=== PATIENT | male | born 1935 | race African-American/Black ===

== ENCOUNTER → 2017-01-22 | Outpatient (CLI) | payer MEDICARE, OTHER ==
[~2017-01-22] MED LIST: ACET-784 PO; ALLO100T PO; AMLO-512 PO; ASPI-825 PO; ATOR40TA28 PO; BISA10S PR; BUME1TAB30 PO; CALC-272 PO; CARV3 PO; CARV6 PO; CEFP200T12 PO; CHOL200016 PO; DOCU240C40 PO; DSS100 PO; FERR-89 PO; FLUT16H NASAL; GABA-531 PO; HYDR-3965 PO; INSLAN SQ; ISOS30TA53 PO; ISOS30TA6 PO; LINA5TAB PO; LISI-662 PO; OXYB5TAB PO; PRED20 PO; SIMV40TA5 PO; [UNRECOGNIZED DRUG - CODE] SQ
[2017-01-22 14:21] VITALS: BP 129/56
== END | disposition home or self-care (01) ==
LOC: SRCNTR 14:13
PROVIDERS: ATTEND Internal Medicine Cardiovascular Disease
DX: E11.22 Type 2 diabetes mellitus with diabetic chronic kidney disease (principal); I13.0 Hypertensive heart and chronic kidney disease with heart failure and stage 1 through stage 4 chronic kidney disease, or unspecified chronic kidney disease; N18.9 Chronic kidney disease, unspecified; I50.9 Heart failure, unspecified; E78.5 Hyperlipidemia, unspecified; I25.10 Atherosclerotic heart disease of native coronary artery without angina pectoris; M10.9 Gout, unspecified; R60.0 Localized edema
CPT/HCPCS: 93005; G0463

== ENCOUNTER → 2017-01-28 | Outpatient (CLI) | payer MEDICARE, OTHER ==
[~2017-01-28] MED LIST changes: -CALC-272 PO; -CARV6 PO; -CEFP200T12 PO; -DOCU240C40 PO; -FERR-89 PO; -OXYB5TAB PO; -SIMV40TA5 PO
[2017-01-28 13:54] VITALS: BP 145/67
== END | disposition home or self-care (01) ==
LOC: SRCNTR 13:43
PROVIDERS: ATTEND Internal Medicine
DX: E11.22 Type 2 diabetes mellitus with diabetic chronic kidney disease (principal); I13.0 Hypertensive heart and chronic kidney disease with heart failure and stage 1 through stage 4 chronic kidney disease, or unspecified chronic kidney disease; N18.9 Chronic kidney disease, unspecified; E66.9 Obesity, unspecified; G47.33 Obstructive sleep apnea (adult) (pediatric); I50.9 Heart failure, unspecified
CPT/HCPCS: G0463